=== PATIENT | male | born 1975 ===

== ENCOUNTER 2018-01-04 20:23 | Emergency (ER) | payer OTHER ==
[2018-01-04 20:41] VITALS: TEMP 97.6
--- NOTE | 2018-01-04 21:06 | ED PDOC ---
HPI: SOB/CHF/COPD Time Seen by Provider: 01/04/18 20:35 Chief Complaint (Nursing): Shortness Of Breath History Per: Patient Onset/Duration Of Symptoms: Days (2) Current Symptoms Are (Timing): Still Present Quality: "Pain" Severity: Moderate Associated Symptoms: Other (sore throat, trouble swallowing). denies: Fever, Chills, Sweating, Chest Pain, Bloody Cough, Productive Cough, Heart Racing, Leg/ Calf Pain, Ankle/Leg Swelling, Dizziness, Light-headedness, Anxiety, Tingling In Hands Or Face, Musle Spasms In Hands Or Feet Additional Complaint(s): 52 y/o male with a two day history of shortness of breath, sore throat, and difficulty swallowing. He denies any fever chills, nasal congestion or other complaint at this time. Past Medical History Vital Signs: Last Vital Signs Temp 97.6 F 01/04/18 20:41 Pulse 66 01/04/18 22:21 Resp 18 01/04/18 22:21 BP 137/82 01/04/18 22:21 Pulse Ox 99 01/04/18 23:00 - Medical History PMH: No Chronic Diseases - Surgical History Surgical History: No Surg Hx - Family History Family History: States: Unknown Family Hx - Home Medications Home Medications: Ambulatory Orders Medication Instructions Recorded Benzonatate [Tessalon Perle] 100 mg PO TID #20 capsule 01/04/18 Ibuprofen [Motrin Tab] 600 mg PO Q6 #30 tab 01/04/18 - Allergies Allergies/Adverse Reactions: Allergies Allergy/AdvReac Type Severity Reaction Status Date / Time No Known Allergies Allergy Verified 01/04/18 20:31 Review of Systems ROS Statement: Except As Marked, All Systems Reviewed And Found Negative Respiratory: Positive for: Shortness of Breath Physical Exam - Reviewed Nursing Documentation Reviewed: Yes Vital Signs Reviewed: Yes - Physical Exam Appears: Positive for: Well, Non-toxic, No Acute Distress Head Exam: Positive for: ATRAUMATIC, NORMAL INSPECTION, NORMOCEPHALIC Skin: Positive for: Normal Color, Warm, DRY Eye Exam: Positive for: EOMI, Normal appearance, PERRL ENT: Positive for: Normal ENT Inspection Neck: Positive for: Normal, Painless ROM Cardiovascular/Chest: Positive for: Regular Rate, Rhythm Respiratory: Positive for: CNT, Normal Breath Sounds Gastrointestinal/Abdominal: Positive for: Normal Exam, Bowel Sounds, Soft Back: Positive for: Normal Inspection Extremity: Positive for: Normal ROM Neurologic/Psych: Positive for: Alert, Oriented - Laboratory Results Result Diagrams: 01/04/18 21:05 01/04/18 21:05 - ECG O2 Sat by Pulse Oximetry: 99 Medical Decision Making Medical Decision Making: Impression: URI v. Unlikely Cardiac Disease Plan: - EKG - CXR - Labs - Toradol On reevaluation the patient reports that he is feeling better and is comfortable going home. Advised patient to follow up in clinic in 2 - 3 days or to return to ER if symptoms worsen or other concerning symptoms develop. Scribe Attestation: Documented by Elena Trevino, acting as a scribe for Hira Hart MD. Provider Scribe Attestation: All medical record entries made by the Scribe were at my direction and personally dictated by me. I have reviewed the chart and agree that the record accurately reflects my personal performance of the history, physical exam, medical decision making, and the department course for this patient. I have also personally directed, reviewed, and agree with the discharge instructions and disposition. Disposition - Clinical Impression Clinical Impression: Cough - Disposition Referrals: [facility] [Outside] Disposition: Routine/Home Disposition Time: 23:04 Condition: IMPROVED Prescriptions: Benzonatate [Tessalon Perle] 100 mg PO TID #20 capsule Ibuprofen [Motrin Tab] 600 mg PO Q6 #30 tab Instructions: Cough in Adults Forms: [facility] (Yoruba) Print Language: FRISIAN
[2018-01-04 21:19] LABS: BASO % 0.7 % (0.0-2.0); EOS # 0.1 K/uL (0.0-0.7); HEMOGLOBIN 14.9 g/dL (12.0-18.0); LYMPH # 1.5 K/uL (1.0-4.3); LYMPH % 22.6 % (20.0-40.0); MEAN CELL VOLUME 87.4 fl (80.0-94.0); MEAN CORPUSCULAR HEMOGLOBIN 28.6 pg (27.0-31.0); MEAN CORPUSCULAR HGB CONC 32.7 g/dL (33.0-37.0); MEAN PLATELET VOLUME 8.2 fl (7.2-11.7); MONO # 1.2 K/uL (0.0-0.8); MONO % 18.1 % (0.0-10.0); NEUT # 3.7 K/uL (1.8-7.0); NEUT % 57.6 % (50.0-75.0); NRBC % 0.1 % (0.0-0.0); RBC 5.2 Mil/uL (4.40-5.90); RED CELL DISTRIBUTION WIDTH 13.6 % (11.5-14.5); WHITE BLOOD COUNT 6.5 K/uL (4.8-10.8)
[2018-01-04 21:27] LABS: BLOOD UREA NITROGEN 11 mg/dl (9-20); CALCIUM 9.4 mg/dL (8.4-10.2); GFR AFRICAN-AMERICAN > 60; GFR NON-AFRICAN AMERICAN > 60
[2018-01-04 22:22] VITALS: BP 137/82; PULSE 66; RESP 18
[2018-01-04 23:00] VITALS: O2SAT 99
--- NOTE | 2018-01-05 08:49 | RAD ---
HISTORY: sob COMPARISON: No prior. TECHNIQUE: Chest PA and lateral FINDINGS: LUNGS: No active pulmonary disease. PLEURA: No significant pleural effusion identified. No pneumothorax apparent. CARDIOVASCULAR: Normal. OSSEOUS STRUCTURES: Mild degenerative changes. VISUALIZED UPPER ABDOMEN: Normal. OTHER FINDINGS: None. IMPRESSION: No active disease.
--- NOTE | 2018-01-05 19:07 | CARD ---
APPROVED REPORT EKG Measurement Heart [id number] <Conclusion> Normal sinus rhythm Normal ECG
== END 2018-01-04 23:30 | disposition home or self-care (01) ==
LOC: EDBD → H.ER 20:23
DX: R05 Cough (principal)
CPT/HCPCS: 71046; 80048; 84484; 85025; 93005; 96374; 99283; J1885

== ENCOUNTER 2018-11-10 14:13 | Emergency (ER) | payer OTHER, SELFPAY ==
[2018-11-10 14:42] VITALS: RESP 18; TEMP 98.3; O2SAT 99
[2018-11-10 15:28] LABS: BASO # 0.1 K/uL (0.0-0.2); BASO % 0.9 % (0.0-2.0); EOS # 0.3 K/uL (0.0-0.7); EOS % 4.2 % (0.0-4.0); HEMOGLOBIN 14.9 g/dL (12.0-18.0); LYMPH # 1.7 K/uL (1.0-4.3); LYMPH % 26.9 % (20.0-40.0); MEAN CELL VOLUME 91.3 fl (80.0-94.0); MEAN CORPUSCULAR HEMOGLOBIN 29.6 pg (27.0-31.0); MEAN CORPUSCULAR HGB CONC 32.5 g/dL (33.0-37.0); MEAN PLATELET VOLUME 8.8 fl (7.2-11.7); MONO # 0.6 K/uL (0.0-0.8); MONO % 9.8 % (0.0-10.0); NEUT # 3.6 K/uL (1.8-7.0); NEUT % 58.2 % (50.0-75.0); NRBC % 0.1 % (0.0-0.0); RBC 5.03 Mil/uL (4.40-5.90); RED CELL DISTRIBUTION WIDTH 13.5 % (11.5-14.5); WHITE BLOOD COUNT 6.2 K/uL (4.8-10.8)
--- NOTE | 2018-11-10 15:30 | ED PDOC ---
HPI: General Adult Time Seen by Provider: 11/10/18 14:41 Chief Complaint (Nursing): Cough, Cold, Congestion Chief Complaint (Provider): Throat Pain, Cough History Per: Patient History/Exam Limitations: no limitations Onset/Duration Of Symptoms: Days (about x2 weeks) Current Symptoms Are (Timing): Still Present Additional Complaint(s): 43 year old male presents to the ED for evaluation of throat pain, tactile fever, and a cough worse at night productive of clear phlegm for about the past two weeks. He denies taking any medication at home. Additionally denies ear su n, recent travel, sick contacts, vomiting, diarrhea, and rash. Of note, he states he had a throat infection one year ago which required antbiotics, but he is unsure if it was strep or not. PMD: none provided Past Medical History Reviewed: Historical Data, Nursing Documentation, Vital Signs Vital Signs: Last Vital Signs Temp 98.3 F 11/10/18 14:41 Pulse 58 L 11/10/18 14:41 Resp 18 11/10/18 14:41 BP 151/82 H 11/10/18 14:41 Pulse Ox 99 11/10/18 14:41 - Medical History PMH: No Chronic Diseases - Surgical History Surgical History: No Surg Hx - Family History Family History: States: Unknown Family Hx - Social History Current smoker - smoking cessation education provided: No Alcohol: None Drugs: Denies - Home Medications Home Medications: Ambulatory Orders Medication Instructions Recorded Benzonatate [Tessalon Perle] 100 mg PO TID #20 capsule 01/04/18 RX: Ibuprofen [Motrin Tab] 600 mg PO Q6 #30 tab 01/04/18 RX: Ibuprofen [Motrin Tab] 800 mg PO Q8 PRN #21 tab 11/10/18 RX: Promethazine DM [Phenergan DM 5 ml PO Q6 PRN #150 ml 11/10/18 Syrup] - Allergies Allergies/Adverse Reactions: Allergies Allergy/AdvReac Type Severity Reaction Status Date / Time No Known Allergies Allergy Verified 01/04/18 20:31 Review of Systems ROS Statement: Except As Marked, All Systems Reviewed And Found Negative Constitutional: Positive for: Fever (tactile) ENT: Positive for: Throat Pain. Negative for: Ear Pain Respiratory: Positive for: Cough (productive of phlegm) Gastrointestinal: Negative for: Vomiting, Diarrhea Skin: Negative for: Rash Physical Exam - Reviewed Nursing Documentation Reviewed: Yes Vital Signs Reviewed: Yes - Physical Exam Comments: GENERAL APPEARANCE: Patient is awake, alert, oriented x 3, in no acute distress. Resting comfortably. SKIN: Warm, dry; (-) cyanosis, (-) rash. EYES: (-) conjunctival pallor, (-) scleral icterus, (-) conjunctival hemo rrhage. ENMT: Mucous membranes moist. TMs: (-) erythema, (-) bulging. Airway patent: (-) stridor. Pharynx: clear, uvula midline (+) erythema, (+) 2+ hypertrophy, (-) exudate. NECK: Supple, FROM (-) tenderness, (-) stiffness, (-) meningismus, (-) lymphadenopathy. ABDOMEN AND GI: Soft; (-) tenderness, (-) guarding (-) distention EXTREMITIES: (-) deformity CHEST AND RESPIRATORY: (-) rales, (-) rhonchi, (-) wheezes; breath sounds equal bilaterally. Respirations even and nonlabored. HEART AND CARDIOVASCULAR: (-) irregularity NEURO AND PSYCH: Mental status as above; (-) focal findings. Gait: steady. Speech: clear. (-) facial asymmetry (-) aphasia - Laboratory Results Result Diagrams: 11/10/18 15:15 - ECG O2 Sat by Pulse Oximetry: 99 (RA) Pulse Ox Interpretation: Normal Medical Decision Making Medical Decision Making: Initial Impression: pharyngitis Time: 1505 Initial Plan: --CBC with differential --Toradol 30mg IM --Tylenol 650mg PO --Throat culture --Infectious mononucleosis serology --Rapid strep swab 1605 Rapid Strep: Negative [place]: Negative CBC with no leukocytosis. Repeat BP: 123/75 On re-evaluation, patient reports improvement of symptoms. On exam, patient remains AAOx3, in no acute distress. Vitals stable. Lab/Diagnostic results d/w the patient in great detail. Diagnosis of viral pharyngitis, cough d/w the patient. Based on history, exam and diagnostic results, plan will be for outpatient follow up with clinic. Patient instructed to follow-up with pmd / referral provided / the clinic in 1- 2 days without fail. Advised to take medication as prescribed. Return to the emergency room at any time for any new or worsening symptoms. Patient states he fully agrees with and understands discharge instructions. States that he agrees with the plan and disposition. Verbalized and repeated discharge instructions and plan. I have given the patient opportunity to ask any additional questions. Scribe Attestation: Documented by Kim Sahu, acting as a scribe for Nu Rizzo PA-C. Provider Scribe Attestation: All medical record entries made by the Scribe were at my direction and personally dictated by me. I have reviewed the chart and agree that the record accurately reflects my personal performance of the history, physical exam, medical decision making, and the department course for this patient. I have also personally directed, reviewed, and agree with the discharge instructions and disposition. Disposition - Clinical Impression Clinical Impression: Throat pain in adult, Viral pharyngitis, Cough - Patient ED Disposition Is Patient to be Admitted: No Counseled Patient/Family Regarding: Studies Performed, Diagnosis, Need For Followup, Rx Given - Disposition Referrals: [facility] [Outside] Disposition: Routine/Home Disposition Time: 16:10 Condition: STABLE Additional Instructions: La atencin mdica de emergencia que recibi hoy se dirigi a jose sntomas agudos. Si le recetaron algn medicamento, llnelo y tmelo segn las indicaciones. Los sntomas pueden tardar varios waldron en resolverse. Regrese al Departamento de Emergencias si jose sntomas empeoran, no mejoran o si tiene otros problemas. Comunquese con perez mdico dentro de 2 waldron para bennett nueva evaluacin y carina un seguimiento o llame a sujatha de los mdicos / clnicas a los que corrigan sido referido y que figuran en el formulario de Informacin de visita al paciente que se incluye en perez paquete de oziel. Lleve todos los documentos que le entregaron al momento del oziel junto con todos los medicamentos que est tomando para perez visita de seguimiento. Nuestro tratamiento no puede reemplazar la atencin mdica continua por parte de un proveedor de atencin primaria (PCP) fuera del departamento de emergencias. Prescriptions: RX: Ibuprofen [Motrin Tab] 800 mg PO Q8 PRN #21 tab PRN Reason: Pain, Moderate (4-7) RX: Promethazine DM [Phenergan DM Syrup] 5 ml PO Q6 PRN #150 ml PRN Reason: Cough Instructions: Viral Pharyngitis, Cough in Adults, Sore Throat in Adults Forms: [facility] (Nigerian) Print Language: KHMER - POA Present On Arrival: None Results - Lab Results Lab Results: 11/10/18 11/10/18 11/10/18 15:15 15:15 15:15 WBC 6.2 RBC 5.03 Hgb 14.9 Hct 45.9 MCV 91.3 D MCH 29.6 MCHC 32.5 L RDW 13.5 Plt Count 196 MPV 8.8 Neut % (Auto) 58.2 Lymph % (Auto) 26.9 [place] % (Auto) 9.8 Eos % (Auto) 4.2 H Baso % (Auto) 0.9 Neut # (Auto) 3.6 Lymph # (Auto) 1.7 [place] # (Auto) 0.6 Eos # (Auto) 0.3 Baso # (Auto) 0.1 Infectious [place] Assay Negative Grp A Beta Strep Ag Negative
[2018-11-10 16:13] VITALS: BP 123/75; PULSE 52
== END 2018-11-10 16:39 | disposition home or self-care (01) ==
LOC: H.ER 14:13
DX: R07.0 Pain in throat (principal); J02.9 Acute pharyngitis, unspecified; R05 Cough
CPT/HCPCS: 85025; 86308; 87070; 87430; 96372; 99283; J1885